=== PATIENT | female | born 1985 | race Caucasian/White ===

== ENCOUNTER → 2016-10-28 | Outpatient (CLI) | payer OTHER ==
[~2016-10-28] MED LIST: MTR600X PO; OXYC-57 PO; PRENTAB26 PO
[2016-10-28 16:39] LABS: GTGD 50 Grams
[2016-11-01 15:24] LABS: AFP CONCENTRATION 38.2 NG/ML; AFPTS GESTATIONAL AGE 17.9 WEEKS; AFPTS INSULIN DEP DIABETIC? NO; AFPTS MATERNAL WT 269 LBS; ALPHA-FETOPROTEIN RACE CAUCASIAN=W; ESTRIOL MULTIPLE OF MEDIAN 1.04; HISTORY OF NTD NO; INHIBIN A 176 PG/ML; INHIBIN A MOM 1.36; REPEAT SAMPLE? NO; hCG MULTIPLE OF MEDIAN 0.84
== END | disposition home or self-care (01) ==
LOC: C.LAB1850 13:25
PROVIDERS: ATTEND Obstetrics & Gynecology
DX: O09.292 Supervision of pregnancy with other poor reproductive or obstetric history, second trimester (principal); Z3A.00 Weeks of gestation of pregnancy not specified

== ENCOUNTER → 2016-11-11 | Outpatient (CLI) | payer OTHER | END | disposition home or self-care (01) | LOC: C.LAB1850 08:03 | PROVIDERS: ATTEND Obstetrics & Gynecology | DX: O28.1 Abnormal biochemical finding on antenatal screening of mother (principal); Z3A.00 Weeks of gestation of pregnancy not specified ==

== ENCOUNTER → 2017-01-13 | Outpatient (CLI) | payer OTHER | END | disposition home or self-care (01) | LOC: C.LAB1850 11:04 | PROVIDERS: ATTEND Obstetrics & Gynecology | DX: O09.293 Supervision of pregnancy with other poor reproductive or obstetric history, third trimester (principal) ==

== ENCOUNTER → 2017-01-13 | Outpatient (CLI) | payer OTHER ==
[2017-01-13 15:26] LABS: URINE APPEARANCE CLOUDY (CLEAR); URINE COLOR DK YELLOW; URINE EPITHELIAL CELL AUTO >30 /lpf (0-5); URINE NITRITE NEG (NEG); UROBILINOGEN NEG (NEG)
[2017-01-13 15:32] LABS: MANUAL MICROSCOPIC REQUIRED? NO; REVIEW REQ? YES
[2017-01-13 15:34] LABS: URINE BILIRUBIN NEG (NEG)
[2017-01-13 15:42] LABS: URINE MUCUS PRESENT (NONE PRSENT)
== END | disposition home or self-care (01) ==
LOC: C.LABSPEC 14:11
PROVIDERS: ATTEND Obstetrics & Gynecology
DX: O09.293 Supervision of pregnancy with other poor reproductive or obstetric history, third trimester (principal)

== ENCOUNTER 2017-02-23 12:18 | Outpatient (CLI) | payer OTHER ==
[~2017-02-23] VITALS: Ht 167.6 cm; Wt 117.3 kg
[2017-02-23] MEDS ORDERED: PRENTAB26 PO (12:49)
[2017-02-23 12:53] VITALS: Ht 167.6 cm; Wt 117.3 kg
[2017-02-23 13:35] LABS: BASO % 0.2 %; BASO ABS # 0.02 K/uL (0-0.2); EOS % 0.3 %; HEMATOCRIT 34.9 % (37-47); IG% 0.3 %; LYMPH % 11.7 %; LYMPH ABS # 1.28 K/uL (1.2-3.4); MEAN CELL VOLUME 80.2 fL (80-100); MEAN CORPUSCULAR HEMOGLOBIN 26.4 pg (25-34); MEAN PLATELET VOLUME 10.7 fL (7.4-10.4); NEUT % 80.5 %; PLATELET COUNT 210 K/uL (130-400); RED BLOOD COUNT 4.35 M/uL (4.2-5.4); WHITE BLOOD COUNT 10.93 K/uL (4.8-10.8)
[2017-02-23 13:38] LABS: COMPLETE YES
[2017-02-23 14:22] LABS: CREATININE 0.66 mg/dl (0.60-1.20); URIC ACID 4.6 mg/dl (2.6-7.2)
[2017-02-24 17:29] LABS: URINE TOTAL PROTEIN 20.5 mg/dl (0-11.9)
[2017-02-24 18:44] LABS: URINE TOTAL PROTEIN CALC 190.7 mg/24 hr (0-149.1)
--- NOTE | 2017-02-25 09:04 | EDITING REQUIRED CODING QUERY ---
DIAGNOSIS NEEDED To promote full compliance with coding requirements relating to patient care, physician participation is requested in all cases of library assistant uncertainty. Please assist us with the question(s) below: Coding Question: The patient received care in labor and delivery on 02/23/17 as noted within the record. Please document the diagnosis that is being addressed by the medication/treatment. Provider Response: DIAGNOSIS: Hypertension in (r/o preeclampsia) Thank you for your assistance, Jamilah Cortes - Film Vault Supervisor
== END 2017-02-23 14:55 | disposition home or self-care (01) ==
LOC: C.OPB 12:18 → C.LD 12:19 → C.OPB 14:55
PROVIDERS: ATTEND Obstetrics & Gynecology
DX: O16.3 Unspecified maternal hypertension, third trimester (principal); Z3A.34 34 weeks gestation of pregnancy

== ENCOUNTER → 2017-03-09 | Outpatient (CLI) | payer OTHER | END | disposition home or self-care (01) | LOC: C.LABSPEC 12:51 | PROVIDERS: ATTEND Obstetrics & Gynecology | DX: O24.410 Gestational diabetes mellitus in pregnancy, diet controlled (principal); Z3A.00 Weeks of gestation of pregnancy not specified ==

== ENCOUNTER → 2017-03-10 | Outpatient (CLI) | payer BC, OTHER ==
[2017-03-10 16:41] LABS: BASO % 0.2 %; BASO ABS # 0.02 K/uL (0-0.2); COMPLETE YES; EOS % 0.8 %; HEMATOCRIT 36.8 % (37-47); IG% 0.3 %; LYMPH ABS # 1.58 K/uL (1.2-3.4); MEAN CELL VOLUME 80.9 fL (80-100); MEAN CORPUSCULAR HEMOGLOBIN 26.4 pg (25-34); MEAN CORPUSCULAR HGB CONC 32.6 g/dl (32-36); MEAN PLATELET VOLUME 11.6 fL (7.4-10.4); MONO % 9.2 %; NEUT % 74.5 %; PLATELET COUNT 236 K/uL (130-400); RED BLOOD COUNT 4.55 M/uL (4.2-5.4); WHITE BLOOD COUNT 10.54 K/uL (4.8-10.8)
[2017-03-10 16:58] LABS: ALT/SGPT 12 U/L (12-78); AST/SGOT 12 U/L (15-37); CREATININE 0.74 mg/dl (0.60-1.20); URIC ACID 3.9 mg/dl (2.6-7.2)
[2017-03-10 16:59] LABS: URINE TOTAL PROTEIN 12.7 mg/dl (0-11.9)
[2017-03-10 19:37] LABS: URINE TOTAL PROTEIN CALC 228.6 mg/24 hr (0-149.1)
== END | disposition home or self-care (01) ==
LOC: C.LAB 16:11
PROVIDERS: ATTEND Obstetrics & Gynecology
DX: O12.13 Gestational proteinuria, third trimester (principal)

== ENCOUNTER → 2017-03-24 | Outpatient (CLI) | payer BC, OTHER | END | disposition home or self-care (01) | LOC: C.LAB1850 14:46 | PROVIDERS: ATTEND Obstetrics & Gynecology | DX: Z01.812 Encounter for preprocedural laboratory examination (principal) ==

== ENCOUNTER 2017-03-28 05:38 | Inpatient (IN) | payer OTHER ==
--- NOTE | 2017-03-24 18:15 | HISTORY & PHYSICAL EXAMINATION ---
DATE OF ADMISSION: 03/28/2017 PREOPERATIVE DIAGNOSES: 1. Intrauterine at 39 and 3/7 weeks. 2. History of previous section. 3. Diet controlled gestational diabetes. 4. Gestational proteinuria without hypertension during in the third trimester. HISTORY OF PRESENT ILLNESS: Bhavna is a 31-year-old white female 4, para 1-0-2-1, with an EDC of 04/01/2017 who presents to labor and delivery for repeat section. Her first in 2003 was an elective termination. She also had a in 2015, which was aborted spontaneously. In September 2013, the patient had a section that was emergent because of a heart rate dropping in the baby at 41 weeks to deliver an 8 pound 10 ounce baby. This was in [place]. She was placed under general anesthetic for the . She elects repeat section, additionally she desires permanent surgical sterilization. PAST OB AND PRACTICE PROFESSIONAL HISTORY: As noted above. ALLERGIES: No known drug allergies. MEDICATIONS: vitamins. PAST MEDICAL HISTORY: Significant for obesity, migraine headaches and chickenpox. She denies thyroid disease, asthma, heart disease, heart murmur, diabetes, kidney or liver problems. 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 Her has not been tested. SOCIAL HISTORY: She is , lives with her spouse and son. She denies tobacco, alcohol or drug use. PAST SURGICAL HISTORY: Includes and a D&C. PHYSICAL EXAMINATION: GENERAL: This is a well-developed, well-nourished, obese white female in no acute distress. VITAL SIGNS: Blood pressure 118/78, weight 259.13 pounds. NECK: Supple without thyromegaly or lymphadenopathy. CHEST: Clear to auscultation bilaterally. CARDIOVASCULAR: Regular rate and rhythm without murmurs, gallops or rubs. BACK: Without costovertebral angle tenderness. ABDOMEN: Gravid, soft and nontender. It measures 40 cm. heart tones are in the 130s. EXTREMITIES: Show trace edema but are otherwise benign. LABORATORY DATA: Blood type B positive, antibody negative, Pap normal, rubella immune, RPR nonreactive, hepatitis B negative, HIV negative, chlamydia and gonorrhea cultures negative, cystic fibrosis carrier, 16-week glucose 135 and she failed the glucose tolerance test at that time. GBS is negative. ASSESSMENT: Bhavna is a 31-year-old white female 4, para 1-0-2-1, who presents at 39-3/7 weeks for repeat section. Additionally, she desires permanent surgical sterilization. The risks of the surgery were discussed with the patient including the risks of anesthesia, bleeding requiring transfusion, infection, poor wound healing, damage to surrounding structures including bowel, bladder, vessels, nerves and ureters with need for further surgery, hospitalization or intervention, urinary retention, blood clot or pulmonary complications, injury to the baby. We also discussed the risks of any surgery including heart attack, blood clot, stroke or . Additionally, the patient desires permanent surgical sterilization. She is aware that this is a permanent form of sterilization. She does understand that about 1-3 in a 1000 fail and if it should fail, she has an increased risk of ectopic. We also discussed the possibility of regret. Additionally, we discussed other contraceptive options including barriers, hormones and long-term reversible contraception as well as vasectomy. They desire to proceed, so the consent was signed for repeat section and bilateral modified [place] tubal ligation.
[2017-03-28] VITALS (13 sets, daily range): BP systolic 97–112; BP diastolic 60–68; PULSE 59–82; TEMP 36.3–37; O2SAT 95–98; Ht 167.6 cm; Wt 117.7 kg
[~2017-03-28] VITALS: Ht 167.6 cm; Wt 117.7 kg
[~2017-03-28 05:38] MED LIST changes: -MTR600X PO; -OXYC-57 PO
[2017-03-28] MEDS ORDERED: LACTATED RINGER'S 1000ML 1,000 ML IV SCH (05:40)
[2017-03-28] MEDS ORDERED: CITRIC ACID/SODIUM CITRATE 15 ML UDC PO ONE (05:45)
[2017-03-28] MEDS ORDERED: CEFAZOLIN IV 3,000 MG in DEXTROSE 5% 50ML 50 ML IV SCH (06:00)
[2017-03-28 06:24] LABS: BASO % 0.4 %; BASO ABS # 0.04 K/uL (0-0.2); COMPLETE YES; EOS % 0.7 %; IG% 0.2 %; LYMPH % 19.5 %; LYMPH ABS # 2.09 K/uL (1.2-3.4); MEAN CELL VOLUME 80.4 fL (80-100); MEAN CORPUSCULAR HGB CONC 31.1 g/dl (32-36); MEAN PLATELET VOLUME 11.1 fL (7.4-10.4); MONO % 6.8 %; NEUT % 72.4 %; PLATELET COUNT 208 K/uL (130-400); RED BLOOD COUNT 4.48 M/uL (4.2-5.4)
[2017-03-28] MEDS ORDERED: FENTANYL CITRATE INJ 50 MCG/1 ML 2 ML VIAL ONE (07:04)
[2017-03-28] MEDS ORDERED: OXYTOCIN INJ 10 UNITS/ML VIAL ONE ×2 (07:04→08:13)
[2017-03-28] MEDS ORDERED: MoRPHine SULFATE PF 1 MG/ML 10 ML AMP/VIAL ONE (07:05)
[2017-03-28] MEDS ORDERED: PHENYLEPHRINE HCL INJ 10 MG/ML VIAL ONE (07:12)
[2017-03-28] MEDS ORDERED: SUPERCREAM 0.870 % 15GM JAR EXT PRN (08:30)
[2017-03-28] MEDS ORDERED: BENZOCAINE 20% AER SPR 82.5 GM CAN EXT PRN (08:30)
[2017-03-28] MEDS ORDERED: DIPHTHERIA/TETANUS/PERTUSSIS 0.5 ML SYR/VIAL IM. ONE (08:30)
[2017-03-28] MEDS ORDERED: HYDROCORTISONE ACETATE 25 MG SUPP PR PRN (08:30)
[2017-03-28] MEDS ORDERED: LANOLIN OINT EXT PRN ×2 (08:30)
--- NOTE | 2017-03-28 08:37 | History & Physical Bridge Note ---
H&P Re-Evaluation Bridge Note: I have examined the patient, reviewed the History & Physical and in the interval since the performance of the History & Physical I have noted the following changes of clinical significance: No changes noted. This was completed prior to the surgery.
--- NOTE | 2017-03-28 08:40 | [facility] Post Operative Brief Note ---
Immediate Operative Summary Operative Date Mar 28, 2017. Pre-Operative Diagnosis at 39 weeks previous c/s desires sterlization Post-Operative Diagnosis same Procedure(s) Performed repeat ltcs bilateral modified daniel tubal ligation Surgeon Amina Volunteer Services Director Surgeon(s) [place] [email or web address] Estimated Blood Loss 600cc Findings viable male , cephalic. apgars 8/9. weight 7#. nl utx/tubes/ovs Fluids (cc crystalloids) 1000cc Specimens bilateral tubal segments Drains young Anesthesia spinal Complication(s) None Disposition L&D
[2017-03-28] MEDS ORDERED: NALOXONE HCL INJ 1 MG in SODIUM CHLORIDE 0.9% 1000ML 1,000 ML IV PRN ×4 (08:44)
[2017-03-28] MEDS ORDERED: LACTATED RINGER'S 1000ML 500 ML IV PRN (08:44)
[2017-03-28] MEDS ORDERED: NALOXONE HCL INJ 0.08 MG in SYRINGE 1.8 ML IV PRN (08:44)
[2017-03-28] MEDS ORDERED: SODIUM CHLORIDE 0.9% 1000ML 1,000 ML IV PRN (08:44)
[2017-03-28] MEDS ORDERED: NALBUPHINE HCL INJ 10 MG/ML AMP IV PRN (08:45)
[2017-03-28] MEDS ORDERED: ONDANSETRON INJ 2 MG/ML 2 ML VIAL IV PRN (08:45)
[2017-03-28] MEDS ORDERED: MoRPHine SULFATE PF 1 MG/ML 10 ML AMP/VIAL EPI PRN (08:45)
[2017-03-28] MEDS ORDERED: EpHEDrine SULFATE INJ 50 MG/ML AMP IV PRN (08:45)
[2017-03-28] MEDS ORDERED: NO NARCOTICS OR SEDATIVES SCH (08:45)
[2017-03-28] MEDS ORDERED: KETOROLAC TROMETHAMINE 30 MG/ML VIAL IV. PRN (08:45)
[2017-03-28] MEDS ORDERED: PROMETHAZINE HCL INJ 25 MG in SODIUM CHLORIDE 0.9% 50ML 50 ML IV PRN (08:45)
[2017-03-28] MEDS ORDERED: DiphenhydrAMINE HCL 50 MG/ML VIAL IV PRN (08:45)
[2017-03-28] MEDS ORDERED: NALOXONE HCL 0.4 MG/1 ML VIAL/CARP IV PRN (08:45)
--- NOTE | 2017-03-28 09:18 | Anesthesiology Progress Note ---
Anesthesia Post Op Note Date & Time Mar 28, 2017 at 09:18 Notes Mental Status: alert / awake / arousable, participated in evaluation Pt Amnestic to Procedure: No Nausea / Vomiting: adequately controlled Pain: adequately controlled Airway Patency, RR, SpO2: stable & adequate BP & HR: stable & adequate Hydration State: stable & adequate Neuraxial Anesthesia: was administered, sensory block is resolving Anesthetic Complications: no major complications apparent
--- NOTE | 2017-03-28 09:58 | Medical Student: [facility] ---
Operative Report Operative Date Mar 28, 2017. Pre-Operative Diagnosis at 39 weeks +3/7 days, hx of x1, desires sterilization Post-Operative Diagnosis same as above Procedure(s) Performed 1. lower transverse Section 2. bilateral tubal ligation Surgeon Amina Hand Tool Lapper Surgeon(s) [place] Estimated Blood Loss 600 cc Findings Normal uterus, fallopian tubes, and ovaries bilaterally. Delivery of a healthy baby boy with AGPAR scores of 8 and 9 weighing 7 lbs 0 oz. Fluids (cc crystalloids) 1000 cc Specimens Right and left fallopian tubal segments Placenta Drains Gustafson with clear fluid Anesthesia Spinal with duramorph Complication(s) None Disposition L&D Implants None Indications History of prior section and requested a second.
--- NOTE | 2017-03-28 10:11 | OPERATIVE REPORT ---
DATE OF OPERATION: 03/28/2017 PREOPERATIVE DIAGNOSES: 1. Intrauterine at 39 weeks. 2. History of previous section, desires repeat. 3. Desires permanent surgical sterilization. SURGEON: Dr. Huynh. MARKETING FINANCIAL ANALYST: Jeromy Zambrano, PGY 1. and Gabriela Wilcox, MS3. ANESTHESIA: Spinal. ESTIMATED BLOOD LOSS: 600 mL FLUIDS: 1000 mL. URINE OUTPUT: 150 mL of clear yellow urine drained from the bladder at the end of the procedure. INDICATIONS: The patient is a 2, para 1 at 39 and 3/7 weeks, who desires repeat section and additionally, she desires permanent surgical sterilization. FINDINGS: Viable male in cephalic presentation, Apgars 8 and 9, weight 7 pounds. Normal uterus. Tubes, and ovaries were normal bilaterally. COMPLICATIONS: None. DRAINS: Gustafson. DISPOSITION: To recovery room in stable condition. PROCEDURE: The patient was taken to the operating room, where she was identified verbally and by bracelet. She was placed in dorsal supine position. She was seated on the operating table where a spinal anesthetic was placed. She was then placed in dorsal supine position with a leftward tilt. A Gustafson catheter was placed sterilely and she was prepped and draped in normal sterile fashion. Timeout was held identifying correct patient, procedure, positioning and preoperative antibiotics was given. The anesthetic was tested and found to be adequate. A Pfannenstiel skin incision was made with the knife. Bleeding was attended to with Bovie electrocautery. The incision was taken down to the underlying layer of fascia with the knife. The fascia was incised in midline with the knife and taken out laterally with scissors. The superior edge of the fascial incision was grasped, elevated and the underlying layer of rectus muscle was taken off bluntly with scissors. In a similar fashion, the inferior edge of the fascial incision was grasped, elevated and the underlying layer of rectus muscle was taken off bluntly and with scissors. The peritoneum had been entered sharply. It was taken superiorly and inferiorly with good visualization of the bladder. The incision was stretched, the bladder blade was placed. The vesicouterine peritoneum was identified and the bladder flap was created sharply with scissors and then bluntly with the amusement ride operator's fingers. The bladder blade was replaced. The hysterotomy incision was made with a knife. Clear fluid was released on amniotomy. The incision was stretched with the amusement ride operator's fingers. The amusement ride operator's hand was placed into the incision and the head was delivered atraumatically through the incision. There was no nuchal cord. The nose and mouth were bulb suctioned and the rest of the infant was then delivered without difficulty. The nose and mouth were again bulb suctioned. The cord was clamped, then cut and the was handed off to the waiting pediatricians for drying and attention. Cord blood and segment were obtained. The placenta was manually extracted. The uterus was exteriorized and cleared of all clot and debris with moistened laparotomy sponges. The hysterotomy incision was repaired in 2 layers, the first in a running locked layer, the second in an imbricating layer of 0 Vicryl. Attention was then turned to the tubes, were first on the right and then on the left, a tubal segment was grasped with a [place]. A tubal knuckle was made and 2 sutures of 2-0 plain gut sutures were placed around this. The tube was then removed with scissors and the edges were cauterized. Attention was then returned to the hysterotomy incision, which was noted to be hemostatic. The uterus was reanteriorized. The tubal sites were examined and stitches were found to be intact. Bleeding at the edge of the bladder flap was attended to with electrocautery and one [id number] suture of 3-0 Vicryl. Hemostasis was then noted to be excellent. The muscles were reapproximated in the midline with 0 Vicryl interrupted sutures. The fascia was reapproximated in the midline starting externally and meeting in the midline with 0 Vicryl. The subcuticular tissue was irrigated. The skin was closed with 4-0 Vicryl in subcuticular fashion. All sponge, lap and needle counts were correct x2. The patient tolerated the procedure well and was taken to recovery room in stable condition. I attest to the content of the Intraoperative Record and any orders documented therein. Any exception s are noted below.
[2017-03-28] MEDS: OXYTOCIN INJ 20 UNITS in LACTATED RINGER'S 1000ML 1,000 ML IV SCH ×2 (10:51→19:11)
[2017-03-28] MEDS: DOCUSATE SODIUM 100 MG CAP PO SCH (19:11)
[2017-03-29] VITALS (7 sets, daily range): BP systolic 101–114; BP diastolic 67–76; PULSE 66–80; TEMP 36.7–37; O2SAT 95–98
[2017-03-29] MEDS ORDERED: ONDANSETRON INJ 2 MG/ML 2 ML VIAL IV PRN (02:45)
[2017-03-29] MEDS ORDERED: KETOROLAC TROMETHAMINE 30 MG/ML VIAL IV. PRN (02:45)
[2017-03-29] MEDS ORDERED: OXYCODONE/ACETAMINOPHEN 5-325 TAB PO PRN (02:45)
[2017-03-29] MEDS ORDERED: DiphenhydrAMINE HCL 50 MG/ML VIAL IV PRN (02:45)
[2017-03-29] MEDS ORDERED: DC INTRASPINAL MORPHINE ONE (02:45)
[2017-03-29] MEDS: OXYTOCIN INJ 20 UNITS in LACTATED RINGER'S 1000ML 1,000 ML IV SCH (03:20)
--- NOTE | 2017-03-29 06:53 | Medical Student: [facility] ---
Med Student DRAPERY ESTIMATOR Progress Nt Date of Service Mar 29, 2017. Subjective conversation w/ patient, physical exam, lab review Ambulation: limited ambulation Voiding: young catheter in place (removed 1 hour ago; has not voided yet) Passing Gas: No Diet Tolerance: Clear Liquids, Nausea/Vomiting (vomiting Jell-O yesterday at lunch, but has not done so since then) Feeding Type: Breast Feeding Notes: Bhavna is a 31 year-old post-operative day 1 for lower transverse section and bilateral tubal ligation. She says she is doing "good." Review of Systems Constitutional: No fever, No chills Respiratory: No cough, No shortness of breath Cardiac: No chest pain Breast: + breast pain (nipples sore) Abdomen: No pain Objective Vital Signs Date Time Temp Pulse Resp B/P (MAP) Pulse Ox O2 Delivery O2 Flow Rate FiO2 03/29/17 03:45 37.0 66 18 101/67 (78) Room Air 03/29/17 02:00 17 96 03/29/17 01:00 18 98 03/29/17 00:15 37.0 70 20 104/67 (79) 96 Room Air 03/29/17 00:15 96 Room Air 03/29/17 00:00 18 96 03/28/17 23:01 18 98 03/28/17 22:00 18 98 03/28/17 21:00 18 96 03/28/17 20:00 18 97 03/28/17 19:00 18 97 03/28/17 19:00 36.9 66 18 98/60 (73) 96 Room Air 03/28/17 18:00 18 96 03/28/17 17:00 18 97 03/28/17 16:00 18 97 03/28/17 15:25 96 Room Air 03/28/17 15:25 36.5 82 18 112/68 (83) 96 Room Air 03/28/17 15:25 18 96 03/28/17 14:15 18 97 03/28/17 13:15 16 96 03/28/17 12:15 36.3 61 16 103/67 (79) 95 Room Air 03/28/17 12:15 16 95 03/28/17 11:15 37.0 59 18 97/60 (72) 97 Room Air 03/28/17 11:15 97 Room Air 03/28/17 11:15 97 Room Air 03/28/17 11:15 18 97 Physical Exam General Appearance: WELL-APPEARING, WD/WN, NO APPARENT DISTRESS Respiratory/Chest: lungs clear Cardiovascular: regular rate, rhythm, no edema, no gallop, no murmur Abdomen: normal bowel sounds, soft Incision Description: Clean, Dry & Intact (some minor bleeding) Extremities: no pedal edema Laboratory Results Last 24 Hours Test 03/29/17 06:00 Assessment and Plan Post-Op Day Number: 1 Continue Routine Care: Continue routine care. Encourage ambulation and drinking fluids.
[2017-03-29 07:04] LABS: BASO % 0.3 %; BASO ABS # 0.03 K/uL (0-0.2); COMPLETE YES; EOS % 1.5 %; HEMATOCRIT 33.4 % (37-47); IG% 0.2 %; LYMPH % 18.1 %; LYMPH ABS # 1.65 K/uL (1.2-3.4); MEAN CELL VOLUME 82.9 fL (80-100); MEAN CORPUSCULAR HEMOGLOBIN 26.3 pg (25-34); MEAN CORPUSCULAR HGB CONC 31.7 g/dl (32-36); MEAN PLATELET VOLUME 11.6 fL (7.4-10.4); MONO % 7.9 %; PLATELET COUNT 163 K/uL (130-400); RED BLOOD COUNT 4.03 M/uL (4.2-5.4)
--- NOTE | 2017-03-29 07:11 | Progress Note ---
Subjective Mar 29, 2017. Subjective conversation w/ patient Voiding: young catheter in place Passing Gas: No Diet Tolerance: Regular Diet Lochia: Small Feeding Type: Breast Feeding Pain: minimal Review of Systems Constitutional: No fever, No chills, No sweats Respiratory: No cough, No shortness of breath Cardiac: No chest pain, No palpitations Abdomen: No pain, No nausea, No vomiting Objective Vital Signs Date Time Temp Pulse Resp B/P (MAP) Pulse Ox O2 Delivery O2 Flow Rate FiO2 03/29/17 03:45 37.0 66 18 101/67 (78) Room Air 03/29/17 02:00 17 96 03/29/17 01:00 18 98 03/29/17 00:15 37.0 70 20 104/67 (79) 96 Room Air 03/29/17 00:15 96 Room Air 03/29/17 00:00 18 96 03/28/17 23:01 18 98 03/28/17 22:00 18 98 03/28/17 21:00 18 96 03/28/17 20:00 18 97 03/28/17 19:00 18 97 03/28/17 19:00 36.9 66 18 98/60 (73) 96 Room Air 03/28/17 18:00 18 96 03/28/17 17:00 18 97 03/28/17 16:00 18 97 03/28/17 15:25 96 Room Air 03/28/17 15:25 36.5 82 18 112/68 (83) 96 Room Air 03/28/17 15:25 18 96 03/28/17 14:15 18 97 03/28/17 13:15 16 96 03/28/17 12:15 36.3 61 16 103/67 (79) 95 Room Air 03/28/17 12:15 16 95 03/28/17 11:15 37.0 59 18 97/60 (72) 97 Room Air 03/28/17 11:15 97 Room Air 03/28/17 11:15 97 Room Air 03/28/17 11:15 18 97 Physical Exam General Appearance: WELL-APPEARING, NO APPARENT DISTRESS Respiratory/Chest: lungs clear, no accessory muscle use Cardiovascular: regular rate, rhythm, no murmur Abdomen: normal bowel sounds, non tender, soft Fundus: Firm, Non-Tender, Relation to Umbilicus (at umbilicus) Incision Description: Clean, Dry & Intact Extremities: non-tender, no calf tenderness Laboratory Results Last 24 Hours Test 03/29/17 06:28 White Blood Count 9.10 K/uL Red Blood Count 4.03 M/uL Hemoglobin 10.6 g/dL Hematocrit 33.4 % Mean Corpuscular Volume 82.9 fL Mean Corpuscular Hemoglobin 26.3 pg Mean Corpuscular Hemoglobin Concent 31.7 g/dl Platelet Count 163 K/uL Mean Platelet Volume 11.6 fL Neutrophils (%) (Auto) 72.0 % Lymphocytes (%) (Auto) 18.1 % Monocytes (%) (Auto) 7.9 % Eosinophils (%) (Auto) 1.5 % Basophils (%) (Auto) 0.3 % Neutrophils # (Auto) 6.54 K/uL Lymphocytes # (Auto) 1.65 K/uL Monocytes # (Auto) 0.72 K/uL Eosinophils # (Auto) 0.14 K/uL Basophils # (Auto) 0.03 K/uL RDW Standard Deviation 48.6 fL RDW Coefficient of Variation 16.0 % Immature Granulocyte % (Auto) 0.2 % Immature Granulocyte # (Auto) 0.02 K/uL Assessment and Plan Post-, Post-Op Day#: 1 Continue Routine Care: 31 F post C section Day 1 Vitals stable Hgb 10.6 today B+, GBS-, Rubella immune Encourage ambulation, encourage breast feeding and bleeding slowing down Continue Routine Post C Section Care Resident Physician Supervision Note: I was present with Dr. Zambrano during the history and exam. I discussed the case with the resident and agree with the findings and plan as documented in the note. Any exceptions or clarifications are listed here: POD#1, doing well. Continue routine postop care. Documented By: Jaimie Mora
--- NOTE | 2017-03-29 08:31 | Medical Student: [facility] ---
Med Student TECHNICAL STAFF ENGINEER Progress Nt Date of Service Mar 29, 2017. Subjective conversation w/ patient, physical exam, lab review Ambulation: limited ambulation Voiding: no voiding problems Passing Gas: No Diet Tolerance: Nausea/Vomiting Feeding Type: Breast Feeding Notes: Bhavna is a 31 year-old post-operative day 1 for lower transverse section and bilateral tubal ligation. She says she is doing "good." Review of Systems Constitutional: No fever, No chills Respiratory: No cough, No shortness of breath Cardiac: No chest pain Breast: + breast pain (sore nipples) Abdomen: + nausea, No pain Objective Vital Signs Date Time Temp Pulse Resp B/P (MAP) Pulse Ox O2 Delivery O2 Flow Rate FiO2 03/29/17 07:15 36.7 80 18 106/70 (82) 95 Room Air 03/29/17 03:45 37.0 66 18 101/67 (78) Room Air 03/29/17 02:00 17 96 03/29/17 01:00 18 98 03/29/17 00:15 37.0 70 20 104/67 (79) 96 Room Air 03/29/17 00:15 96 Room Air 03/29/17 00:00 18 96 03/28/17 23:01 18 98 03/28/17 22:00 18 98 03/28/17 21:00 18 96 03/28/17 20:00 18 97 03/28/17 19:00 18 97 03/28/17 19:00 36.9 66 18 98/60 (73) 96 Room Air 03/28/17 18:00 18 96 03/28/17 17:00 18 97 03/28/17 16:00 18 97 03/28/17 15:25 96 Room Air 03/28/17 15:25 36.5 82 18 112/68 (83) 96 Room Air 03/28/17 15:25 18 96 03/28/17 14:15 18 97 03/28/17 13:15 16 96 03/28/17 12:15 36.3 61 16 103/67 (79) 95 Room Air 03/28/17 12:15 16 95 03/28/17 11:15 37.0 59 18 97/60 (72) 97 Room Air 03/28/17 11:15 97 Room Air 6/12/17 11:15 97 Room Air 03/28/17 11:15 18 97 Physical Exam General Appearance: WELL-APPEARING, WD/WN Respiratory/Chest: lungs clear, normal breath sounds Cardiovascular: regular rate, rhythm, no edema, no gallop, no murmur Abdomen: normal bowel sounds, non tender, soft Incision Description: Clean, Dry & Intact (minor bleeding) Extremities: no pedal edema Laboratory Results Last 24 Hours Test 03/29/17 06:28 White Blood Count 9.10 K/uL Red Blood Count 4.03 M/uL Hemoglobin 10.6 g/dL Hematocrit 33.4 % Mean Corpuscular Volume 82.9 fL Mean Corpuscular Hemoglobin 26.3 pg Mean Corpuscular Hemoglobin Concent 31.7 g/dl Platelet Count 163 K/uL Mean Platelet Volume 11.6 fL Neutrophils (%) (Auto) 72.0 % Lymphocytes (%) (Auto) 18.1 % Monocytes (%) (Auto) 7.9 % Eosinophils (%) (Auto) 1.5 % Basophils (%) (Auto) 0.3 % Neutrophils # (Auto) 6.54 K/uL Lymphocytes # (Auto) 1.65 K/uL Monocytes # (Auto) 0.72 K/uL Eosinophils # (Auto) 0.14 K/uL Basophils # (Auto) 0.03 K/uL RDW Standard Deviation 48.6 fL RDW Coefficient of Variation 16.0 % Immature Granulocyte % (Auto) 0.2 % Immature Granulocyte # (Auto) 0.02 K/uL Assessment and Plan Post-, Post-Op Day Number: 1 Continue Routine Care: Bhavna is a 31 year-old post-operative day 1 for lower transverse section and bilateral tubal ligation. - Continue routine care - Patient encouraged to ambulate and increase fluid intake
[2017-03-29] MEDS: DOCUSATE SODIUM 100 MG CAP PO SCH ×2 (08:33→20:28)
[2017-03-29] MEDS: PRENATAL VITAMIN TAB PO SCH (08:34)
[2017-03-29] MEDS: OXYCODONE/ACETAMINOPHEN 5-325 TAB PO PRN (17:15)
[2017-03-29] MEDS: IBUPROFEN 600 MG TAB PO PRN (20:32)
[2017-03-30 00:10] VITALS: BP 119/80; PULSE 76; TEMP 36.7; O2SAT 97
[2017-03-30] MEDS: OXYCODONE/ACETAMINOPHEN 5-325 TAB PO PRN (00:27)
[2017-03-30] MEDS: IBUPROFEN 600 MG TAB PO PRN (05:37)
--- NOTE | 2017-03-30 06:09 | Medical Student: [facility] ---
Med Student MACHINE FITTER Progress Nt Date of Service Mar 30, 2017. Subjective conversation w/ patient, physical exam Ambulation: ambulating normally Voiding: no voiding problems Passing Gas: Yes Diet Tolerance: Regular Diet Lochia: Small Feeding Type: Breast Feeding Notes: Ms. Coelho is a 31-year-old postoperative day 2 for lower transverse delivery and bilateral tubal ligation. She says she is doing "good" other than being sore mostly in the right lower quadrant of the abdomen. She also describes a "burning cut feeling" in her incision site. Her pain was managed with Percocet yesterday and Motrin today. She is tolerating the pain well currently. Review of Systems Constitutional: No fever, No chills Respiratory: No shortness of breath Cardiac: No chest pain, No palpitations Breast: No problem reported Abdomen: + pain, No nausea, No vomiting Female : + abnormal vaginal bleeding (described as a "light period") Objective Vital Signs Date Time Temp Pulse Resp B/P (MAP) Pulse Ox O2 Delivery O2 Flow Rate FiO2 03/30/17 00:10 97 Room Air 03/30/17 00:10 36.7 76 18 119/80 (93) 97 Room Air 03/29/17 17:00 37.0 78 18 114/76 (89) 98 Room Air 03/29/17 17:00 Room Air 03/29/17 07:30 Room Air 03/29/17 07:15 36.7 80 18 106/70 (82) 95 Room Air Physical Exam General Appearance: WELL-APPEARING, NO APPARENT DISTRESS Respiratory/Chest: lungs clear Cardiovascular: regular rate, rhythm, no gallop, no murmur Abdomen: normal bowel sounds, + tenderness Fundus: Tender Incision Description: Clean, Dry & Intact (some minor bleeding, but no purulent discharge or erythema) Extremities: no pedal edema Laboratory Results Last 24 Hours Test 03/29/17 06:28 03/30/17 06:00 White Blood Count 9.10 K/uL Red Blood Count 4.03 M/uL Hemoglobin 10.6 g/dL Hematocrit 33.4 % Mean Corpuscular Volume 82.9 fL Mean Corpuscular Hemoglobin 26.3 pg Mean Corpuscular Hemoglobin Concent 31.7 g/dl Platelet Count 163 K/uL Mean Platelet Volume 11.6 fL Neutrophils (%) (Auto) 72.0 % Lymphocytes (%) (Auto) 18.1 % Monocytes (%) (Auto) 7.9 % Eosinophils (%) (Auto) 1.5 % Basophils (%) (Auto) 0.3 % Neutrophils # (Auto) 6.54 K/uL Lymphocytes # (Auto) 1.65 K/uL Monocytes # (Auto) 0.72 K/uL Eosinophils # (Auto) 0.14 K/uL Basophils # (Auto) 0.03 K/uL RDW Standard Deviation 48.6 fL RDW Coefficient of Variation 16.0 % Immature Granulocyte % (Auto) 0.2 % Immature Granulocyte # (Auto) 0.02 K/uL Assessment and Plan Post-, Post-Op Day Number: 2 Continue Routine Care: This is a 31-year-old postoperative day 2 for lower transverse Section and bilateral tubal ligation. Patient is ready to go home today, and we discussed discharge plans briefly. We talked about care of the incision, avoidance of heavy lifting, and indications to call the OB outpatient office including significant bleeding or depression.
[2017-03-30 07:09] LABS: HEMATOCRIT 31.4 % (37-47)
--- NOTE | 2017-03-30 07:19 | Progress Note ---
Subjective Mar 30, 2017. Subjective conversation w/ patient Ambulation: ambulating normally Voiding: no voiding problems, no incontinence Passing Gas: Yes Diet Tolerance: Regular Diet Lochia: Small Feeding Type: Breast Feeding Pain: Using percocet for pain control Review of Systems Constitutional: No fever, No chills, No sweats Respiratory: No cough, No sputum, No shortness of breath Cardiac: No chest pain, No claudication, No palpitations Abdomen: No pain, No nausea, No vomiting Objective Vital Signs Date Time Temp Pulse Resp B/P (MAP) Pulse Ox O2 Delivery O2 Flow Rate FiO2 03/30/17 00:10 97 Room Air 03/30/17 00:10 36.7 76 18 119/80 (93) 97 Room Air 03/29/17 17:00 37.0 78 18 114/76 (89) 98 Room Air 03/29/17 17:00 Room Air 03/29/17 07:30 Room Air 03/29/17 07:15 36.7 80 18 106/70 (82) 95 Room Air Physical Exam General Appearance: WELL-APPEARING, NO APPARENT DISTRESS Respiratory/Chest: lungs clear, no accessory muscle use Cardiovascular: regular rate, rhythm, no murmur Abdomen: normal bowel sounds, non tender, soft Fundus: Firm, Non-Tender, Relation to Umbilicus (1 cm below) Incision Description: Clean, Dry & Intact Extremities: non-tender, no calf tenderness Laboratory Results Last 24 Hours Test 03/30/17 06:53 Hemoglobin 9.9 g/dL Hematocrit 31.4 % Assessment and Plan Problem List C Section Day 2 Vitals reviewed and stable B+, GBS-, Rubella immune Patient doing well clinically Discharge home today with follow up in 6 weeks Post-, Post-Op Day#: 2 Continue Routine Care: Resident Physician Supervision Note: I interviewed and examined the patient. Discussed with Dr. Zambrano and agree with findings and plan as documented in the note. Any exceptions or clarifications are listed here: Post-op instructions and Rx given. Questions answered Documented By: Dawson Loomis
--- NOTE | 2017-03-30 07:20 | Discharge Instructions ---
Discharge Instructions Date of Service Mar 30, 2017. Admission Reason for Admission: Previous Section Affecting Discharge Discharge Diagnosis / Problem: C- Section Discharge Goals Goal(s): Decrease discomfort, Improve function, Increase independence Activity Recommendations Activity Limitations: per Instructions/Follow-up section . Instructions / Follow-Up Instructions / Follow-Up ACTIVITY RECOMMENDATIONS: * Gradual return to full activity over the next 2-3 weeks. * No lifting - nothing heavier than baby over the next 2-3 weeks. * Do not engage in vigorous exercise, sexual activity or sports until cleared by your physician. * Do not drive or operate any motorized equipment until cleared by your physician. * You may shower/bathe daily. MEDICATIONS: For discomfort or pain, you may use Acetaminophen (Tylenol), Ibuprofen (Advil), or Naproxen (Aleve) following the package directions. For constipation you may use Colace following the package directions. BREAST CARE: If you are not breast feeding: * Wear a supportive bra 24 hours a day for one to two weeks. * Avoid stimulating your breasts and nipples as much as possible during the first few weeks after delivery. * When taking a shower, have the warm water hit your back, not breasts. * When your breasts feel full, apply ice packs. Usually three to four times a day helps ease the discomfort. * Take a mild pain medication (Tylenol / Motrin) when you are uncomfortable. If breast feeding: * Use breast milk to lubricate nipples. Lansinoh cream may be used for sore nipples. You do not need to remove cream prior to breast feeding. If using a different brand of cream, check the label for directions regarding removal of cream prior to nursing. * Wear a supportive bra. * If having problems with breasts or breast feeding, call a system consultant or your health care provider. EPISIOTOMY CARE: After delivery, if you have an episiotomy (stitches), the following steps will ease discomfort and aid healing. * For the first 24 hours after delivery, place ice packs next to your episiotomy to help reduce swelling. * After the first 24 hour-period, sitz baths, either portable or in the tub, are suggested. A shower with a shower arm sprayed over the episiotomy may be comforting. * Nataliya care should be done after each voiding and bowel movement. Squirt warm water from a plastic bottle over the perineum (region of the body between the anus and urinary opening) and pat dry. * Use Dermoplast to ease discomfort. Shake container. [place]ak[place] directly over the episiotomy. Place a Tucks on a clean sanitary pad next to your episiotomy. SPECIAL CARE INSTRUCTIONS: When you are discharged from the hospital, it is important for you to follow the instructions listed below: * During the first week at home, you should be able to care for yourself and your baby. In addition, the usual light household activities are encouraged. * Limit your activities to the way you feel. Do not try to clean the house or move furniture. Be sensible. * If you actively engage in sports and have done so up until the time of your delivery, you may resume these activities as soon as you feel able. This may take up to one month or even longer. Use good judgment. * Continue to take your vitamins for at least six weeks after the of your baby. * Your diet need not be limited unless you were on a special diet before your delivery. Breast-feeding mothers need around 2500 calories per day and at least 64-80 ounces of fluid per day (8 to 10 glasses). * You should eat foods from the four major food groups. Crash diets or fad diets are to be avoided. Eating lean meats, fresh fruits and vegetables, low-fat dairy products, high fiber foods and a regular exercise program, will help you get back to your pre- weight without putting your health at risk. * Constipation is sometimes a problem after delivery. Take a mild laxative as needed. If breast feeding, Milk of Magnesia is acceptable to use. You may use a suppository or Fleets enema if no episiotomy. * A daily shower or tub bath is suggested. Be sure to thoroughly and gently dry the perineum. * A bloody vaginal discharge will usually continue until around four weeks post . A small amount of bleeding may continue for as long as six weeks. Vaginal discharge changes from the bright red bleeding after delivery to pink then brownish and finally yellowish-pink before becoming white and disappearing. * Bleeding may increase with activity. Your first period may come in 4-8 weeks. If you are breast feeding, your period may be delayed even longer. * [place] (sex) can begin whenever both you and your partner feel comfortable and do not have any form of genital infection. It is recommended that you wait at least six weeks for internal and external healing to occur. If you have questions, please talk to your health care practitioner. A condom should be used to prevent infection and . * Foreplay, gentle intercourse and lubrication is very important the first several times to prevent pain. A water-based lubricant such as K-Y jelly or Astroglide may be used. * If you have RH negative blood and your baby is RH positive, you will receive RHOGAM by injection prior to discharge. The nurse will give you a card to keep with you that has the date and place that you received RHOGAM after delivery. * During your care, you had a Rubella screen done to check for the presence of rubella antibodies in your blood. If your test was negative, you will receive a Rubella vaccine prior to discharge. This vaccine may cause a fever, soreness at the injection site and flu-like symptoms. If these symptoms persist, notify your health care practitioner. is not advised for one month after a Rubella vaccine. * Verbalizes understanding of car seat law as reviewed with patient nursing. * Car Seat hand-out given and reviewed with patient by nursing. * Shaken baby information reviewed with patient by nursing. Call you doctor if: * Heavy bleeding (saturating several pads an hour) or passing clots the size of your fist. * A fever >101 degrees F (38.3 degrees C) on two occasions four hours apart and /or chills. * Unusual pain in the pelvic or vaginal areas. * "Baby Blues" lasting longer than two weeks. If you have any questions or concerns, call your health care practitioner at . FOLLOW UP VISIT: * Please call the office at to schedule a 6 week examination. It is important you keep this appointment. It is important for you to make arrangements for either yearly or twice yearly check-ups thereafter. Current Hospital Diet Patient's current hospital diet: Regular OB Diet Discharge Diet Recommended Diet: Regular Diet Procedures Procedures Performed: REPEAT CAESAREAN DELIVERY. BILATERAL TUBAL LIGATION. Pending Studies Studies pending at discharge: no Medical Emergencies . Who to Call and When: Medical Emergencies: If at any time you feel your situation is an emergency, please call 911 immediately. . Non-Emergent Contact Non-Emergency issues call your: Primary Care Provider, Plant Custodian . . "Provider Documentation" section prepared by Jeromy Zambrano. . VTE Core Measure Inpt VTE Proph given/why not?: SCD's
[2017-03-30] MEDS ORDERED: MTR600X PO (07:21)
[2017-03-30] MEDS ORDERED: OXYC-57 PO (07:21)
[2017-03-30 08:35] VITALS: BP 110/71; PULSE 92; TEMP 37.1; O2SAT 97
[2017-03-30] MEDS: DOCUSATE SODIUM 100 MG CAP PO SCH (09:00)
[2017-03-30] MEDS: PRENATAL VITAMIN TAB PO SCH (09:00)
[2017-03-30 14:05] VITALS: BP_DIAS 71; PULSE 92; TEMP 37.1
--- NOTE | 2017-04-04 10:51 | DISCHARGE SUMMARY ---
ADMISSION DIAGNOSES: 1. Intrauterine at 39-3/7 weeks. 2. History of previous section. 3. Diet controlled gestational diabetes. 4. Gestational proteinuria without hypertension during the in the third trimester. DISCHARGE DIAGNOSES: Same. PROCEDURE: Repeat lower transverse section. HISTORY OF PRESENT ILLNESS: Ms. Huggins is a 31-year-old white female 4, para 1-0-2-1, with an EDC of 04/01/2017 who presents to labor and delivery for repeat section. Her first in 2003 was an elective termination. She had in 2015, which was aborted spontaneously. In 2012, the patient had section that with emergent because of a heart rate dropping and the baby at 41 weeks to deliver an 8 pound 10 ounce baby. This was in [place]. She was placed under general anesthetic for the . She desired elective repeat section and additionally she desires permanent surgical sterilization. For rest of the patient's detailed history and physical, please see her dictated history and physical. ASSESSMENT: Bhavna is a 31-year-old white female 4, para 1-0-2-1, who presents at 39-3/7 weeks for repeat section and additionally she desires permanent surgical sterilization. HOSPITAL COURSE: The patient underwent a repeat lower transverse section and modified bilateral Leighton tubal ligation without difficulty. Estimated blood loss was 600 mL. She delivered a liveborn male infant in cephalic presentation, Apgars of 8 and 9, weight 7 pounds, normal uterus, tubes, and ovaries were noted bilaterally. The patient had an uncomplicated course, she ambulated without difficulty, voided after the removal of her Gustafson catheter, passed gas, tolerated a regular diet was and her pain was well controlled with oral pain medications. She was discharged on post- day/postoperative day #2 with prescriptions to return in 6 weeks for a visit.
== END 2017-03-30 14:05 | disposition home or self-care (01) | DRG 765 ==
LOC: C.OPB 05:38 → C.LD 05:38 → C.OPB 05:43 → C.LD 05:55 → EDSTATUS 07:30 → C.OBG 11:15
PROVIDERS: ADMIT Obstetrics & Gynecology; ATTEND Obstetrics & Gynecology
PROC: 0UB70ZZ Excision of Bilateral Fallopian Tubes, Open Approach (ICD-10-PCS; principal; 2017-03-28 07:30)
PROC: 10D00Z1 Extraction of Products of Conception, Low, Open Approach (ICD-10-PCS; principal; 2017-03-28 07:30)
DX: O34.211 Maternal care for low transverse scar from previous cesarean delivery (principal); Z68.41 Body mass index [BMI] 40.0-44.9, adult; Z37.0 Single live birth; N85.8 Other specified noninflammatory disorders of uterus; O24.420 Gestational diabetes mellitus in childbirth, diet controlled; O12.14 Gestational proteinuria, complicating childbirth; O99.214 Obesity complicating childbirth; E66.9 Obesity, unspecified; Z30.2 Encounter for sterilization; Z14.1 Cystic fibrosis carrier; Z3A.39 39 weeks gestation of pregnancy